=== PATIENT | female | born 1940 | race Caucasian/White ===

== ENCOUNTER → 2018-07-27 | Outpatient (CLI) | payer MEDICARE, BC ==
[~2018-07-27] MED LIST: CALCAVITD PO; DILT120ERA PO; FERR325 PO; FURO20 PO; GABA300 PO; HYDCHL12.5 PO; Micro-K10 MEQ PO; ONDA4ODT MM; PANT20 PO; POTCHL10ER PO; SUCR1 PO; VITAMIN D-32000 UNIT PO
== END | disposition home or self-care (01) ==
LOC: LAB EV 12:46 → LAB SHORT 12:46
DX: N39.0 Urinary tract infection, site not specified (principal)
CPT/HCPCS: 87077; 87086; 87186

== ENCOUNTER → 2018-11-27 | Outpatient (CLI) | payer MEDICARE, BC ==
[~2018-11-27] MED LIST changes: +ALEN70 PO; +METPRE4DP PO
== END ==
LOC: LAB SHORT 13:40 → LAB EV 13:40
DX: N30.01 Acute cystitis with hematuria (principal)
CPT/HCPCS: 87077; 87086; 87186

== ENCOUNTER 2018-12-04 10:02 | Emergency (ER) | payer MEDICARE, BC ==
[~2018-12-04] VITALS: Ht 149.9 cm; Wt 98.9 kg
[~2018-12-04 10:02] MED LIST changes: -ALEN70 PO; -METPRE4DP PO
[2018-12-04] MEDS ORDERED: ALEN70 PO (10:36)
[2018-12-04] MEDS ORDERED: METPRE4DP PO (11:52)
== END 2018-12-04 12:08 | disposition home or self-care (01) ==
LOC: ER 10:02
DX: M54.16 Radiculopathy, lumbar region (principal); I10 Essential (primary) hypertension; Z88.5 Allergy status to narcotic agent; Z79.899 Other long term (current) drug therapy; Z96.653 Presence of artificial knee joint, bilateral
CPT/HCPCS: 72100; 73502; 99283-25

== ENCOUNTER → 2020-02-19 | Outpatient (CLI) | payer MEDICARE, BC ==
[~2020-02-19] MED LIST changes: +ALEN70 PO; +METPRE4DP PO
[2020-02-19 13:00] LABS: Source, Urine Clean Catch
[2020-02-19 13:12] LABS: Appearance, Urine Cloudy (Clear); Bilirubin, Urine Neg (Neg); Blood, Urine 5+ (Neg); Color, Urine Yellow (P-Yellow); Glucose Qualitative, Urine Neg (Neg); Ketones, Urine Neg (Neg); Leukocyte Esterase, Urine 3+ (Neg); Nitrite, Urine Neg (Neg); Protein, Urine 3+ (Neg); Urobilinogen, Urine NORM (Normal)
[2020-02-19 13:28] LABS: Bacteria Few /hpf; Squamous Epithelial Cells Rare /hpf (Few); White Blood Cells, Urine TNTC /hpf (0-5)
== END | disposition home or self-care (01) ==
LOC: LAB SHORT 11:10 → LAB 11:10
PROVIDERS: Nurse Practitioner Family
DX: R30.0 Dysuria (principal)
CPT/HCPCS: 81001; 87077; 87086; 87186

== ENCOUNTER → 2020-05-11 | Outpatient (CLI) | payer MEDICARE, BC ==
[~2020-05-11] MED LIST changes: +CRANBERRY CONC1 EAC1 PO; +DILTIAZEM 24HR240 M3 PO; -FERR325 PO; +FERSU300 PO; +FUROSEMIDE20 MG PO; +K-Dur 20 meq T20 MEQ PO; +NEURONTIN300 MG PO; +PANTOPRAZOLE SO40 M2 PO; +PYRI100 PO; +SYNTHROID25 MC1 PO; -VITAMIN D-32000 UNIT PO; +Vitamin D2000 UNIT PO
== END ==
LOC: LAB SHORT 13:09 → LAB 13:09
DX: N39.0 Urinary tract infection, site not specified (principal)
CPT/HCPCS: 87077; 87086; 87186

== ENCOUNTER → 2020-06-08 | Outpatient (CLI) | payer MEDICARE, BC | END | disposition home or self-care (01) | LOC: LAB SHORT 18:26 → LAB 18:26 | DX: N39.0 Urinary tract infection, site not specified (principal) | CPT/HCPCS: 87077; 87086; 87186 ==

== ENCOUNTER → 2020-06-25 | Outpatient (CLI) | payer MEDICARE, BC | END | disposition home or self-care (01) | LOC: LAB SHORT 18:13 → LAB 18:13 | DX: R30.9 Painful micturition, unspecified (principal) | CPT/HCPCS: 87077; 87086; 87186 ==

== ENCOUNTER → 2021-02-12 | Outpatient (CLI) | payer MEDICARE, BC | END | disposition home or self-care (01) | LOC: LAB 14:40 → LAB SHORT 14:40 | DX: N39.0 Urinary tract infection, site not specified (principal) | CPT/HCPCS: 87077; 87086; 87186 ==

== ENCOUNTER 2021-09-09 21:50 | Emergency (ER) | payer MEDICARE, BC ==
[~2021-09-09] VITALS: Ht 149.9 cm; Wt 90.7 kg
== END 2021-09-09 22:59 | disposition home or self-care (01) ==
LOC: ER 21:50
DX: M47.817 Spondylosis without myelopathy or radiculopathy, lumbosacral region (principal); I10 Essential (primary) hypertension; Z88.5 Allergy status to narcotic agent; Z79.899 Other long term (current) drug therapy
CPT/HCPCS: 96372; 99283-25; A9270; J1170

== ENCOUNTER → 2021-09-30 | Outpatient (CLI) | payer MEDICARE, BC | END | disposition home or self-care (01) | LOC: LAB SHORT 20:00 | DX: N39.0 Urinary tract infection, site not specified (principal) | CPT/HCPCS: 87077; 87086; 87186 ==

== ENCOUNTER → 2021-11-02 | Outpatient (CLI) | payer MEDICARE, BC | END | disposition home or self-care (01) | LOC: LAB 09:22 → LAB SHORT 09:22 | DX: N39.0 Urinary tract infection, site not specified (principal) | CPT/HCPCS: 87077; 87086; 87186 ==

== ENCOUNTER 2022-12-28 09:31 | Inpatient (IN) | payer MEDICARE, BC ==
[~2022-12-28] VITALS: Ht 149.9 cm; Wt 78.5 kg
[2022-12-28] VITALS (37 sets, daily range): BP systolic 73–124; BP diastolic 44–80
[2022-12-28 10:19] LABS: BASOPHILS ABSOLUTE AUTO 0.03 K/mm3 (0.00-0.23); BASOPHILS PERCENT AUTO 1 % (0-2); EOSINOPHILS ABSOLUTE AUTO 0.06 K/mm3 (0.00-0.68); EOSINOPHILS PERCENT AUTO 1 % (0-6); Hematocrit 23.5 % (33.0-51.0); Hemoglobin 7.7 g/dL (11.5-16.0); IMMATURE GRAN ABSOLUTE AUTO 0.03 K/mm3 (0.00-0.10); IMMATURE GRAN PERCENT AUTO 1 % (0-1); LYMPHOCYTES ABSOLUTE AUTO 1.22 K/mm3 (0.84-5.20); LYMPHOCYTES PERCENT AUTO 26 % (21-46); MONOCYTES ABSOLUTE AUTO 0.47 K/mm3 (0.16-1.47); MONOCYTES PERCENT AUTO 10 % (4-13); Mean Corpuscular HGB 29.8 pg (26.0-34.0); Mean Corpuscular HGB Conc 32.8 g/dL (31.5-36.5); Mean Corpuscular Volume 91 fL (80-100); Mean Platelet Volume 8.8 fL (9.1-12.4); NEUTROPHILS ABSOLUTE AUTO 2.95 K/mm3 (1.96-9.15); NEUTROPHILS PERCENT AUTO 62 % (41-73); Platelet Count 295 K/mm3 (150-400); RDW Coefficient Variation 15.2 % (11.7-14.2); RDW Standard Deviation 49.5 fL (35.1-46.3); Red Blood Cell Count 2.58 M/mm3 (3.80-5.20); White Blood Cell Count 4.76 K/mm3 (4.00-11.30)
[2022-12-28 10:38] LABS: Albumin, Blood 3.3 g/dL (3.4-5.0); Bilirubin, Total 0.6 mg/dL (0.1-1.0); Creatinine, Blood 0.88 mg/dL (0.40-1.00); Globulin, Blood 3.2 g/dL (2.2-4.0); Potassium, Blood 3.4 mmol/L (3.5-5.5); Total Protein, Blood 6.5 g/dL (6.4-8.2)
[2022-12-28 11:58] LABS: Source, Urine Clean Catch
[2022-12-28 12:00] LABS: Appearance, Urine Clear (Clear); Bilirubin, Urine Neg (Neg); Blood, Urine 2+ (Neg); Color, Urine Yellow (P-Yellow); Glucose Qualitative, Urine Neg (Neg); Ketones, Urine Neg (Neg); Leukocyte Esterase, Urine 3+ (Neg); Nitrite, Urine Pos (Neg); Protein, Urine 2+ (Neg); Urobilinogen, Urine NORM (Normal); pH, Urine 6.5 (5.0-8.0)
[2022-12-28 12:06] LABS: White Blood Cells, Urine 25-50 /hpf (0-5)
[2022-12-28 12:07] LABS: Bacteria Many /hpf; Mucus Mod (0-Heavy); Squamous Epithelial Cells Mod /hpf (Few)
[2022-12-28] MEDS ORDERED: K-Dur20 MEQ PO (13:57)
[2022-12-28] MEDS ORDERED: CARBIDOPA-LEVO1 EA15 PO (13:58)
[2022-12-28] MEDS ORDERED: DILT120ERA PO (15:12)
--- NOTE | 2022-12-28 15:43 | NUR ---
PT ARRIVAL.... PT ARRIVED TO THE UNIT AT 1440, SHE IS A&Ox4. VS STABLE AT THIS TIME SHE IS ON RA WITH O2 SATS >95%, L/S CLEAR T/O. SHE HAS 1 UNITS OF PRBCs RUNNING PER ORDERS. A PROTONIX GTT IS ALSO RUNNING PER ORDERS. SHE CURRENTLY DENIES ANY N/V, C/O OF ABD PAIN WITH PALPATION. SHE IS IN SR IN THE 60'S-70'S, BP STABLE WITH MAPS >65. TRACE EDEMA TO THE BLE NOTED ON THIS ASSESSMENT. PT C/O OF 6/10 CHRONIC BACK PAIN. PURWICK WAS PLACED. CALL LIGHT IN REACH WILL CONTINUE TO MONITOR.
[2022-12-28 17:04] LABS: Hematocrit 22.7 % (33.0-51.0); Hemoglobin 7.1 g/dL (11.5-16.0)
[2022-12-28 17:06] LABS: Magnesium, Blood 1.9 mg/dL (1.6-2.4); Phosphorus, Blood 3.2 mg/dL (2.5-4.9)
--- NOTE | 2022-12-28 18:55 | NUR ---
ASSUMPTION OF CARE/ SHIFT SUMMARY ASSUMED CARE OF PATIENT AT 1730. PATIENT ALERT AND ORIENTED X 4, AFEBRILE. PATIENT SATTING 90% AND GREATER ON RA. HR AND BP STABLE. PATIENT RECEIVED 2 UNITS OF PRBCS AND 500 ML NS BOLUS. PATIENT GIVEN IV DIFLUCAN FOR REDDENED/ BURNING VULVA. PROTONIX INFUSING AT 10 MLS/ HOUR AND LR AT 150 MLS/ HOUR. PRN TYLENOL GIVEN FOR COMPLAINTS OF CHRONIC BACK PAIN. REPORT GIVEN TO ASSUMING SKINNING MACHINE FEEDER NURSE.
--- NOTE | 2022-12-28 20:10 | NUR ---
ASSUMED CARE PT IS A&O X4; SPO2 >92% ON RA; MAP <65; NSR. NO C/O CP, SOB, OR NAUSEA. BT ACTIVE. PT HAS COMPLAINTS OF BURNING SENSATION WHEN SHE PEE'S (PT IS ON ROCEPHIN FOR PYELONEPHRITIS). PT ALSO STATES SHE IS INCONTINENT SO PUREWICK WAS PUT IN D/T CONSTANT SATURATION OF ATTENDS. PT HAS C/O LOWER BACK PAIN THAT IS CURRENTLY BEING MANAGED WELL W/ TYLENOL PER PT. WILL CONTINUE TO MONITOR.
[2022-12-28 21:04] LABS: Hematocrit 27.2 % (33.0-51.0); Hemoglobin 8.9 g/dL (11.5-16.0)
[2022-12-29] VITALS (33 sets, daily range): BP systolic 99–150; BP diastolic 45–90
[2022-12-29 01:34] LABS: Hematocrit 25.8 % (33.0-51.0); Hemoglobin 8.6 g/dL (11.5-16.0)
[2022-12-29 05:13] LABS: BASOPHILS ABSOLUTE AUTO 0.03 K/mm3 (0.00-0.23); BASOPHILS PERCENT AUTO 0 % (0-2); EOSINOPHILS ABSOLUTE AUTO 0.08 K/mm3 (0.00-0.68); EOSINOPHILS PERCENT AUTO 1 % (0-6); Hematocrit 26.1 % (33.0-51.0); Hemoglobin 8.6 g/dL (11.5-16.0); IMMATURE GRAN ABSOLUTE AUTO 0.03 K/mm3 (0.00-0.10); IMMATURE GRAN PERCENT AUTO 0 % (0-1); LYMPHOCYTES ABSOLUTE AUTO 0.81 K/mm3 (0.84-5.20); LYMPHOCYTES PERCENT AUTO 11 % (21-46); MONOCYTES ABSOLUTE AUTO 0.77 K/mm3 (0.16-1.47); MONOCYTES PERCENT AUTO 10 % (4-13); Mean Corpuscular HGB 29.7 pg (26.0-34.0); Mean Corpuscular Volume 90 fL (80-100); Mean Platelet Volume 9.1 fL (9.1-12.4); NEUTROPHILS ABSOLUTE AUTO 5.73 K/mm3 (1.96-9.15); NEUTROPHILS PERCENT AUTO 77 % (41-73); Platelet Count 218 K/mm3 (150-400); RDW Coefficient Variation 16.2 % (11.7-14.2); RDW Standard Deviation 51.6 fL (35.1-46.3); White Blood Cell Count 7.45 K/mm3 (4.00-11.30)
--- NOTE | 2022-12-29 05:42 | NUR ---
SHIFT SUMMARY PT IS A&O X4; SPO2 >92% ON RA; NSR; MAP <65. NO C/O CP, SOB, NAUSEA, DIZZINESS, OR LIGHTHEADEDNESS. PT STATED THAT SHE HAS NOT BEEN ABLE TO SLEEP WELL FOR THE PAST COUPLE DAYS IN THE HOSPITAL, BUT OTHERWISE FEELS WELL (WILL INFORM DAYSHIFT RN ABOUT ASKING DR FOR SLEEP AID; PT WANTED TO WAIT TIL NEXT NIGHT TO TRY.). PROTONIX AND LR INFUSING PER ORDER. PUREWICK IN PLACE AND DRAINING APPROPRIATELY. LOWER BACK PAIN HAS BEEN MINIMAL THIS SHIFT PER PT.
[2022-12-29 06:00] LABS: Albumin, Blood 2.6 g/dL (3.4-5.0); Bilirubin, Total 0.8 mg/dL (0.1-1.0); Calcium, Blood 7.9 mg/dL (8.5-10.1); Creatinine, Blood 0.88 mg/dL (0.40-1.00); Globulin, Blood 2.7 g/dL (2.2-4.0); Percent Saturation 14.6 % (15.0-50.0); Potassium, Blood 3.1 mmol/L (3.5-5.5); Total Protein, Blood 5.3 g/dL (6.4-8.2)
--- NOTE | 2022-12-29 07:19 | NUR ---
AM NOTE... ASSUMED CARE OF PT AT 0700. PT IS LYING IN BED WITH PUREWICK IN PLACE. SHE IS ON RA SATTING >92%. PT'S MAP IS CURRENTLY 65 AND HER HR HAS BEEN IN THE 70'S-80'S. PT STATES SHE DID NOT GET MUCH SLEEP LAST NIGHT AND IS C/O CHRONIC BACK PAIN. SHE HAS PROTONIX AND LR RUNNING AT THIS TIME. PT'S LAST HEMOGLOBIN LEVEL WAS 8.6. WILL CONTINUE TO MONITOR.
--- NOTE | 2022-12-29 07:33 | NUR ---
AM NOTE.... ASSUMED CARE OF PT AT 0700. PT IS A&Ox4. SHE IS IN SR IN THE 80'S BP SOFT BUT STABLE WITH MAPS >65. NO EDEMA NOTED ON THIS ASSESSMENT. SHE IS ON RA WITH O2 SATS >90% L/S CLEAR T/O DIM IN THE BASES. RR 12-16. BT PRESENT AND HYPOACTIVE, ABD IS SOFT PT DENIES ANY ABD PAIN AT THIS TIME. SHE DOES C/O OF CHRONIC BACK PAIN AND DID NOT SLEEP AT ALL LAST NIGHT. PUREWICK IN PLACE. PT HAS NOT HAD A BM SINCE ADMIT. SHE IS ON A PROTONIX GTT AND LR RUNNING AT 150MLS/HR. PLAN FOR GI CONSULT TODAY. WILL CONTINUE TO MONITOR.
--- NOTE | 2022-12-29 15:26 | NUR ---
Pt. is awake in bed and welcomes my visit. Pt is pleasant, and a life review was facilitated. Pts. daughter is present. Pt. displays evidence of being aware and engaged. Rapport is established. Prayed for Pt. and Pt. verbalized gratitude for the spiritual care visit.
[2022-12-29 16:10] LABS: Hematocrit 27.1 % (33.0-51.0); Hemoglobin 8.7 g/dL (11.5-16.0)
--- NOTE | 2022-12-29 17:53 | NUR ---
SHIFT SUMMARY.... NO ACUTE NEGATIVE CHANGES NOTED THIS SHIFT. PT HAS HAD 4 BLACK TARRY STOOLS THIS SHIFT, THE FIRST 2 WERE FORMED THE LAST 2 WERE LOOSE, PROVIDER AWARE. PT'S LAST HGB WAS 8.7. PT HAS DENIED ANY N/V THIS SHIFT. VS STABLE. SHE HAS BEEN ABLE TO GET UP TO THE BSC WITH 2P ASSIST. SHE WAS UP IN THE RECLINER CHAIR FOR APROX 2HRS THIS AFTERNOON. PLAN IS FOR GI PROVIDER TO ASSESS THE PT THIS EVENING. PUREWICK IN PLACE AND WORKING WELL. PT'S SISTER SANDRA WHOM THE PT LIVES WITH VERBALIZED HER CONCERNS ABOUT CARE ONCE THE PT GOES HOME, WELDING TEACHER CONSULT WAS PLACED AND THEY WERE NOTIFED OF THE PT AND FAMILY'S CONCERNS. CALL LIGHT IN REACH WILL CONTINUE TO MONITOR UNTIL REPORT IS GIVEN TO ONCOMING RN.
--- NOTE | 2022-12-29 19:26 | NUR ---
ASSUMED CARE PT IS A&O X4; MAP <65; SPO2 >92% ON RA; NSR. NO C/O CP, SOB, NAUSEA, DIZZINESS, OR LIGHTHEADEDNESS. ONLY COMPLAINT PT HAS IS FOR BLADDER SPASMS AND LOWER BACKPAIN (WAITING ON MEDICATION FROM PHARMACY FOR BLADDER SPASMS; TYLENOL MANAGING LOWER BACK PAIN). PT IS OTHERWISE RESTING QUIETLY WATCHING TV. PUREWICK IN PLACE AND DRAINING APPROPRIATELY.
--- NOTE | 2022-12-29 20:17 | NUR ---
ARRIVED TO PCU 18 PT ARRVIED FROM ICU 8 TO PCU 18 VIA WHEELCHAIR; WITH TWO PERSON ASSISTANCE PT WAS ABLE TO TRANSFER OVER TO BED WITH HER CANE. SHE IS A/O X4 AND ABLE TO MAKE HER NEEDS KNOWN; SHE STATES FATIGUE NOTED. ON RA, NO C/O SOB OR CHEST PAIN. NSR WITH RATE 70'S. PUREWICK PLACED ON ARRIVAL. LR INFUSING AT 100ML/HR. PROTONIX GTT INFUSING. WILL REPORT TO NEXT RN WHEN AVAILABLE.
--- NOTE | 2022-12-29 20:25 | NUR ---
TRANSFER PT TRANSFERRED TO PCU 18 W/ NO ISSUES. BELONGINGS AND MEDICATION W/ PT.
--- NOTE | 2022-12-29 21:17 | NUR ---
UPDATE REPORT GIVEN TO OLIVE BABIN AT 2100
[2022-12-29 21:24] LABS: Hematocrit 29.4 % (33.0-51.0); Hemoglobin 9.5 g/dL (11.5-16.0)
[2022-12-30] VITALS (22 sets, daily range): BP systolic 98–157; BP diastolic 38–102
[2022-12-30 00:22] LABS: Hematocrit 27.4 % (33.0-51.0); Hemoglobin 8.8 g/dL (11.5-16.0)
[2022-12-30 04:22] LABS: BASOPHILS ABSOLUTE AUTO 0.02 K/mm3 (0.00-0.23); BASOPHILS PERCENT AUTO 0 % (0-2); EOSINOPHILS ABSOLUTE AUTO 0.29 K/mm3 (0.00-0.68); EOSINOPHILS PERCENT AUTO 5 % (0-6); Hematocrit 27.1 % (33.0-51.0); Hemoglobin 8.7 g/dL (11.5-16.0); IMMATURE GRAN ABSOLUTE AUTO 0.02 K/mm3 (0.00-0.10); IMMATURE GRAN PERCENT AUTO 0 % (0-1); LYMPHOCYTES ABSOLUTE AUTO 0.93 K/mm3 (0.84-5.20); LYMPHOCYTES PERCENT AUTO 17 % (21-46); MONOCYTES ABSOLUTE AUTO 0.61 K/mm3 (0.16-1.47); MONOCYTES PERCENT AUTO 11 % (4-13); Mean Corpuscular HGB 29.6 pg (26.0-34.0); Mean Corpuscular HGB Conc 32.1 g/dL (31.5-36.5); Mean Corpuscular Volume 92 fL (80-100); Mean Platelet Volume 8.8 fL (9.1-12.4); NEUTROPHILS ABSOLUTE AUTO 3.65 K/mm3 (1.96-9.15); NEUTROPHILS PERCENT AUTO 66 % (41-73); Platelet Count 233 K/mm3 (150-400); RDW Coefficient Variation 16.8 % (11.7-14.2); RDW Standard Deviation 53.1 fL (35.1-46.3); Red Blood Cell Count 2.94 M/mm3 (3.80-5.20); White Blood Cell Count 5.52 K/mm3 (4.00-11.30)
[2022-12-30 04:43] LABS: Bun/Creatinine Ratio 9.9 (12.0-20.0); Calcium, Blood 8.1 mg/dL (8.5-10.1); Creatinine, Blood 0.81 mg/dL (0.40-1.00); Potassium, Blood 3.3 mmol/L (3.5-5.5)
--- NOTE | 2022-12-30 05:13 | NUR ---
SHIFT SUMMARY: A&OX4, VERY PLEASANT. PT SLEPT COMFORTABLY T/O THE NIGHT AND REPORTED MINIMAL CHRONIC BACK PAIN THAT WAS WELL MANAGED WITH PO TYLENOL. PROTONIX AND FLUIDS CONITNUE TO RUN. PLANS FOR SCOPE TODAY. PT TO BE NPO AFTER BREAKFAST. PT REPORTED SMALL LOOSE BLOODY BMs DURING THE DAY, NO BMs NOTED THIS SHIFT. DENIED N/V. TOLERATING PO FLUIDS. HEMOGLOBIN THIS AM WAS 8.7. PUREWICK REMAINS IN PLACE AND IS DRAINING YELLOW URINE. PT RESTING WITH CALL LIGHT IN REACH, WILL GIVE REPORT TO DAY TIME RN.
--- NOTE | 2022-12-30 17:41 | NUR ---
12/30/[address] REQUESTED MAC FOR SEDATION. AFTER REVIEWING THE PATIENT'S CHART, DR TERRY REQUESTS NURSE SEDATION. SPOKE TO DR FORTE ABOUT DR TERRY' DECISION FOR NURSE SEDATION. AFTER CONVERSATION WITH DR. FORTE, THE PLAN IS NOW FOR NRUSE ADMINISTERED DEEP SEDATION WITH PROPOFOL.
--- NOTE | 2022-12-30 18:46 | NUR ---
CENTRAL SUPERVISOR [employer] EDUCATION RECONNECTED POST-EGD.
--- NOTE | 2022-12-30 20:38 | NUR ---
SPOKE WITH DR FORTE REGARDING CONFLICTING WRITTEN AND MAR ORDERS. PER DR FORTE, DC PROTONIX DRIP DUE TO NO FOUND SOURCE OF BLEEDING ON UPPER ENDOSCOPY.
--- NOTE | 2022-12-31 06:49 | NUR ---
PLASTIC TILE SETTER SUMMARY ASSUMED CARE OF THE PT AT 1900. ACCORDING TO DR FORTE, HER UPPER ENDOSCOPY WAS NEGATIVE FOR SOURCE OF BLEEDING SO PROTONIX DRIP WAS DC'D. PT IS ALERT AND ORIENTED X4, PLEASANT AND COOPERATIVE. SHE HAS CHRONIC RIGHT HIP PAIN TREATED WITH HEATING PAD, TYLENOL, AND LIDOCAINE PATCH. VS HAVE BEEN STABLE. PT IS COMFORTABLE WITH GOING HOME TODAY, THOUGH FAMILY HAS CONCERN ABOUT PT BEING WEAK.
[2022-12-31 08:31] VITALS: BP 128/63
[2022-12-31] MEDS ORDERED: CEFPODOXIME PR100 MG PO (15:34)
[2022-12-31 15:36] VITALS: BP 118/64
--- NOTE | 2022-12-31 16:30 | NUR ---
PT D/C HOME AT 1600 SISTER HERE TO MARKETING COMMUNICATIONS COORDINATOR PT, WILL TRANSPORT HER HOME IN PERSONAL VEHICLE. ORIGINAL MEDICATION LIST FAXED TO PREFERRED PHARMACY IN [place], CORRECTED MED ORDERS FAXED TO [facility] IN [place] DUE TO PREFERRED PHARMACY BEING CLOSED UNTIL MONDAY. ALL D/C TEACHING DONE WITH PT AND SISTER. ALL QUESTIONS ANSWERED. SUJATA DELIVERED TO PT'S ROOM FROM [facility]. PT AND FAMILY VERBALIZE UNDERSTANDING OF ALL D/C INSTRUCTIONS. TRANSPORTED TO VEHICLE VIA W/C WITH ALL PERSONAL BELONGINGS.
== END 2022-12-31 15:38 | disposition home health service (06) | DRG 811 ==
LOC: ER 09:31 → ICUW 13:23 → PCU 13:23 → ICUE 13:23 → PCU 13:23 → ICUE 14:36 → PCU 12-29 20:02
PROVIDERS: Student in an Organized Health Care Education/Training Program; ADMIT Hospitalist
PROC: 30233N1 Transfusion of Nonautologous Red Blood Cells into Peripheral Vein, Percutaneous Approach (ICD-10-PCS; principal; 2022-12-29)
PROC: 0DJ08ZZ Inspection of Upper Intestinal Tract, Via Natural or Artificial Opening Endoscopic (ICD-10-PCS; 2022-12-30)
DX: D50.0 Iron deficiency anemia secondary to blood loss (chronic) (principal); K31.82 Dieulafoy lesion (hemorrhagic) of stomach and duodenum; K92.0 Hematemesis; N12 Tubulo-interstitial nephritis, not specified as acute or chronic; K92.1 Melena; I47.29 Other ventricular tachycardia; K44.9 Diaphragmatic hernia without obstruction or gangrene; I10 Essential (primary) hypertension; B96.20 Unspecified Escherichia coli [E. coli] as the cause of diseases classified elsewhere; K57.30 Diverticulosis of large intestine without perforation or abscess without bleeding; G20 Parkinson's disease; E87.6 Hypokalemia; I00 Rheumatic fever without heart involvement; Z96.653 Presence of artificial knee joint, bilateral; Z85.42 Personal history of malignant neoplasm of other parts of uterus; Z90.710 Acquired absence of both cervix and uterus; Z90.49 Acquired absence of other specified parts of digestive tract; Z90.89 Acquired absence of other organs; Z98.890 Other specified postprocedural states; Z87.448 Personal history of other diseases of urinary system; Z88.5 Allergy status to narcotic agent; Z88.1 Allergy status to other antibiotic agents; Z79.890 Hormone replacement therapy; Z79.899 Other long term (current) drug therapy
CPT/HCPCS: 36415; 36430; 74177; 80048; 80053; 81001; 82607; 82728; 82746; 83540; 83550; 83690; 83735; 83880; 84100; 85014; 85018; 85025; 86850; 86900; 86901; 86923; 87077; 87086; 87186; 93306; 94760; 96365-59; 96366; 96368; 97110; 97116; 97162; 99285-25; A9270; C9113; J0696; J1450; J2704; J2916; J7030; J7040; J7120; P9016; Q9967

== ENCOUNTER → 2024-07-07 | Outpatient (CLI) | payer MEDICARE, BC ==
[~2024-07-07] MED LIST changes: +CARBIDOPA-LEVO1 EA15 PO; +CEFPODOXIME PR100 MG PO; +K-Dur20 MEQ PO
== END | disposition home or self-care (01) ==
LOC: LAB SHORT 16:12 → LAB 16:12
DX: N39.0 Urinary tract infection, site not specified (principal)
CPT/HCPCS: 87077; 87086; 87186

== ENCOUNTER → 2025-05-25 | Outpatient (CLI) | payer MEDICARE, BC | LOC: LAB SHORT 13:29 → LAB 13:29 | DX: R30.0 Dysuria (principal) | CPT/HCPCS: 87086 ==